=== PATIENT | male | born 1990 | race Caucasian/White ===

== ENCOUNTER 2017-10-22 09:23 | Day surgery (SDC) | payer OTHER ==
[2017-10-22 09:27] VITALS: BMI 25.8
--- NOTE | 2017-10-22 09:35 | PDOC ---
History of Present Illness - General History Source: Patient Exam Limitations: No Limitations - History of Present Illness Initial Comments: 10/22/17 10:43 The patient is a 27 year old male, with a significant past medical history of kidney stones, who presents to the emergency department with acute onset of right lower quadrant pain since last night. Patient reports his pain radiates into the umbilicus. He denies any associated nausea, vomiting, diarrhea, or constipation. He denies eating anything out of the ordinary or any injuries. He denies any flank pain, dysuria, hematuria, frequency, or urgency. He denies any recent fever, chills, headache, or dizziness. He denies any recent travel or sick contacts. Allergies: Penicillins Past Surgical History: None reported. Social History: Non smoker. No ETOH or recreational drug use. PCP: Dr. Ceja <Americo Holley - Last Filed: 10/22/17 15:59> - General History Source: Patient Exam Limitations: No Limitations <Jeanie Graham - Last Filed: 10/22/17 16:27> - General Chief Complaint: Pain Stated Complaint: ABD PAIN Time Seen by Provider: 10/22/17 09:35 Past History <Americo Holley - Last Filed: 10/22/17 15:59> - Past Medical History COPD: No - Immunization History Immunization Up to Date: Yes - Suicide/Smoking/Psychosocial Hx Smoking Status: No Smoking History: Never smoked Have you smoked in the past 12 months: No Number of Cigarettes Smoked Daily: 0 Hx Alcohol Use: Yes (occassionally.) Drug/Substance Use Hx: No Substance Use Type: Alcohol <Jeanei Graham - Last Filed: 10/22/17 16:27> - Past Medical History Allergies/Adverse Reactions: Allergies Allergy/AdvReac Type Severity Reaction Status Date / Time Penicillins Allergy Mild itchy Verified 10/22/17 09:25 Review of Systems - Review of Systems Able to Perform ROS?: Yes Comments:: 10/22/17 10:43 GENERAL/CONSTITUTIONAL: No: fever, chills, weakness, loss of appetite. HEAD, EYES, EARS, NOSE AND THROAT: No: change in vision, ear pain, discharge, sore throat, throat swelling. CARDIOVASCULAR: No: chest pain, lightheadedness, palpitations, syncope RESPIRATORY: No: cough, shortness of breath, wheezing, hemoptysis, stridor. GASTROINTESTINAL: Yes right lower quadrant pain radiating to the umbilicus. No: nausea, vomiting, abdominal cramping, diarrhea, rectal bleeding, constipation. GENITOURINARY: No: dysuria, hematuria, frequency, urgency, flank pain. MUSCULOSKELETAL: No: back pain, neck pain, joint pain, muscle swelling or pain SKIN: No: lesions, pallor, rash or easy bruising. NEUROLOGIC: No: headache, vertigo, paresthesias, weakness ENDOCRINE: No: unexplained weight gain or loss HEMATOLOGIC/LYMPHATIC: No: anemia, easy bleeding, swelling nodes <Holley,Giomilsy - Last Filed: 10/22/17 15:59> *Physical Exam - Vital Signs Last Vital Signs Temp Pulse Resp BP Pulse Ox 98.7 F 82 18 153/74 99 10/22/17 09:25 10/22/17 09:24 10/22/17 09:24 10/22/17 09:24 10/22/17 09:24 - Physical Exam Comments: 10/22/17 10:43 GENERAL: The patient is in no acute distress. HEAD: Normal with no signs of trauma. EYES: PERRLA, EOMI, sclera anicteric, conjunctiva clear. ENT: Ears normal, nares patent, oropharynx clear without exudates. Moist mucous membranes. NECK: Normal range of motion, supple without lymphadenopathy, JVD, or masses. LUNGS: Breath sounds equal, clear to auscultation bilaterally. No wheezes, and no crackles. HEART:Regular rate and rhythm, normal S1 and S2 without murmur, rub or gallop. ABDOMEN: Mild right lower quadrant tenderness. Soft, normoactive bowel sounds. No guarding, no rebound. EXTREMITIES: Normal range of motion, no edema. No clubbing or cyanosis. No erythema, or tenderness. NEUROLOGICAL: Cranial nerves II through XII grossly intact. Normal speech. No focal neurological deficits. MUSCULOSKELETAL: Back non-tender to palpation, no CVA tenderness SKIN: Warm, Dry, normal turgor, no rashes or lesions noted. <Holley,Giomilsy - Last Filed: 10/22/17 15:59> - Vital Signs Last Vital Signs Temp Pulse Resp BP Pulse Ox 99.0 F 82 18 153/74 99 10/22/17 09:24 10/22/17 09:24 10/22/17 09:24 10/22/17 09:24 10/22/17 09:24 <Jeanie Graham - Last Filed: 10/22/17 16:27> ED Treatment Course - LABORATORY CBC & Chemistry Diagram: 10/22/17 10:20 10/22/17 10:20 - RADIOLOGY Radiograph Interpretation: 10/22/17 15:59 EXAM: CT Abdomen and Pelvis INTERPRETED BY: Dr. Brewer REVIEWED BY: Dr. Graham IMPRESSION: The heart is now enlarged. The visualized lung bases are clear. The liver is normal in size and contour. The gallbladder is not pathologically distended. There is no intrahepatic or extrahepatic biliary ductal dilatation. The pancreas is unremarkable. Normal size spleen, with no focal lesions. There is no mass or nodule in the adrenal glands. The kidneys are normal in size with symmetric enhancement. There is no hydroureteronephrosis. There is a 3 mm nonobstructing calculus in a lower pole calyx of the right kidney. Normal caliber abdominal aorta. There is no bowel obstruction. The appendix is fluid- filled and dilated, measuring up to 11 mm at the tip, with mucosal hyperenhancement, wall thickening and periappendiceal fat stranding. There is no extraluminal gas. There is ascites or drainable collection within the abdomen or pelvis. The urinary bladder is underdistended, which limits evaluation. The prostate gland is not enlarged. No pathologically enlarged lymph nodes by CT size criteria within the abdomen or pelvis. Few subcentimeter right lower quadrant is enteric lymph nodes may be reactive. No acute fracture in the visualized osseous structures. SUMMARY:1. Acute appendicitis as described above with no CT evidence of perforation. 2. A 3 mm nonobstructing right renal calculus. <Americo Holley - Last Filed: 10/22/17 15:59> - LABORATORY CBC & Chemistry Diagram: 10/22/17 10:20 10/22/17 10:20 <Jeanie Graham - Last Filed: 10/22/17 16:27> Medical Decision Making - Medical Decision Making 10/22/17 16:18 Laboratory Tests 10/22/17 10/22/17 10/22/17 10:20 10:20 10:20 WBC 11.5 H Hgb 16.0 Hct 47.5 Plt Count 398 INR Sodium 140 Potassium 4.3 Chloride 102 Carbon Dioxide 30 D BUN 8 D Creatinine 0.9 D Random Glucose 88 Total Bilirubin 1.2 H D Urine Ketones Negative Urine Blood Negative Ur Leukocyte Esterase Negative 10/22/17 10:20 WBC Hgb Hct Plt Count INR 1.01 Sodium Potassium Chloride Carbon Dioxide BUN Creatinine Random Glucose Total Bilirubin Urine Ketones Urine Blood Ur Leukocyte Esterase CT of the abdomen and pelvis consistent with acute appendicitis Dr. Olmedo in the emergency department seeing another patient. Case discussed with Dr. Olmedo She will see this patient in the ER 10/22/17 16:21 Pt ordered for Levaquin and Flagyl 10/22/17 16:24 Pt ordered for Cefoxitin 1GM Pt given NS 2 L Clinical Impression: Acute Appendicitis, initial presentation <Jeanie Graham - Last Filed: 10/22/17 16:27> *DC/Admit/Observation/Transfer - Attestations Scribe Attestion: 10/22/17 10:44 Documentation prepared by Americo Holley, acting as medical office professional instructor for Jeanie Graham MD. <Americo Holley - Last Filed: 10/22/17 15:59> - Discharge Dispostion Admit: Yes <Jeanie Graham - Last Filed: 10/22/17 16:27> Diagnosis at time of Disposition: Appendicitis Qualifiers: Appendicitis type: acute appendicitis Acute appendicitis type: other Qualified Code(s): K35.89 - Other acute appendicitis - Discharge Dispostion Condition at time of disposition: Stable - Referrals Referrals: Marky Ceja [Primary Care Provider] - - Patient Instructions - Post Discharge Activity
[2017-10-22] MEDS ORDERED: HYDROmorphone HCL CARPU-JECT 1 MG/1 ML DISP.SYRIN IVPUSH ONE (10:15)
[2017-10-22] MEDS ORDERED: HYDROmorphone HCL CARPU-JECT 2 MG/1 ML DISP.SYRIN ONE (10:45)
[2017-10-22 10:53] LABS: BASO % 0.8 % (0-2.0); EOS % 1.4 % (0-4.5); HEMATOCRIT 47.5 % (35.4-49); LYMPH % 15.6 % (8-40); MCH 30.1 pg (25.7-33.7); MCHC 33.6 g/dl (32.0-35.9); MEAN CELL VOLUME 89.5 fl (80-96); MONO % 6.4 % (3.8-10.2); NEUT % 75.8 % (42.8-82.8); PLATELET COUNT 398 K/MM3 (134-434); RDW 12.8 % (11.9-15.9); WHITE BLOOD COUNT 11.5 K/mm3 (4.0-10.0)
[2017-10-22 10:55] LABS: URINE APPEARANCE CLEAR; URINE BILIRUBIN NEGATIVE (NEGATIVE); URINE BLOOD NEGATIVE (NEGATIVE); URINE COLOR LTYELLOW; URINE GLUCOSE (UA) NEGATIVE (NEGATIVE); URINE KETONE NEGATIVE (NEGATIVE); URINE LEUK ESTERASE NEGATIVE (NEGATIVE); URINE NITRITE NEGATIVE (NEGATIVE); URINE PROTEIN NEGATIVE (NEGATIVE)
[2017-10-22 11:33] LABS: ALBUMIN 4.1 g/dl (3.4-5.0); ANION GAP 8 (8-16); BLOOD UREA NITROGEN 8 mg/dL (7-18); CALCIUM 9.4 mg/dL (8.5-10.1); CHLORIDE 102 mmol/L (98-107); CO2 30 mmol/L (21-32); CREATININE 0.9 mg/dL (0.7-1.3); GLUCOSE,RANDOM 88 mg/dL (74-106); POTASSIUM 4.3 mmol/L (3.5-5.1); SODIUM 140 mmol/L (136-145)
[2017-10-22] MEDS ORDERED: SODIUM CHLORIDE 1,000 ML IV STA ×2 (11:34→15:07)
[2017-10-22 11:53] LABS: ALK PHOS 92 U/L (45-117); BILIRUBIN,TOTAL 1.2 mg/dL (0.2-1.0); SGOT/AST 22 U/L (15-37); SGPT/ALT 36 U/L (12-78); TOT PROT 8.5 g/dl (6.4-8.2)
[2017-10-22 15:26] LABS: INR 1.01 (0.82-1.09); PROTHROMBIN TIME (PATIENT) 11.4 SEC (9.98-11.88)
[2017-10-22] MEDS ORDERED: cefOXitin SODIUM 2 GM VIAL (RESTRICTED TO ID) IVPB ONE (16:03)
[2017-10-22] MEDS ORDERED: CEFOXITIN SODIUM 2 GM in DEXTROSE 5%-WATER - 100 ML IVPB ONE (16:15)
[2017-10-22] MEDS ORDERED: CEFOXITIN SODIUM 1 GM in DEXTROSE 5%-WATER - 100 ML IVPB ONE (16:25)
--- NOTE | 2017-10-22 16:32 | PDOC ---
ED Treatment Course - LABORATORY CBC & Chemistry Diagram: 10/22/17 10:20 10/22/17 10:20 - ADDITIONAL ORDERS Additional order review: Laboratory Results 10/22/17 10/22/17 10/22/17 10:20 10:20 10:20 PT with INR 11.40 INR 1.01 Sodium 140 Potassium 4.3 Chloride 102 Carbon Dioxide 30 D Anion Gap 8 BUN 8 D Creatinine 0.9 D Creat Clearance w eGFR > 60 Random Glucose 88 Calcium 9.4 Total Bilirubin 1.2 H D AST 22 ALT 36 Alkaline Phosphatase 92 D Total Protein 8.5 H Albumin 4.1 Urine Color Ltyellow Urine Appearance Clear Urine pH 5.0 Ur Specific [place] 1.016 Urine Protein Negative Urine Glucose (UA) Negative Urine Ketones Negative Urine Blood Negative Urine Nitrite Negative Urine Bilirubin Negative Urine Urobilinogen 2.0 Ur Leukocyte Esterase Negative 10/22/17 10:20 RBC 5.30 MCV 89.5 MCHC 33.6 RDW 12.8 MPV 7.0 L Neutrophils % 75.8 Lymphocytes % 15.6 Monocytes % 6.4 Eosinophils % 1.4 D Basophils % 0.8 - RADIOLOGY Radiology Studies Ordered: Category Date Time Status ABDOMEN & PELVIS CT WITH CONTR [CT] Stat CT Scan 10/22/17 10:15 Completed - Medications Given in the ED: ED Medications Discontinued Medications Generic Name Dose Route Start Last Admin Trade Name Freq PRN Reason Stop Dose Admin Hydromorphone HCl 0.5 mg 10/22/17 10:15 10/22/17 10:53 Dilaudid Injection - IVPUSH 10/22/17 10:16 0.5 mg ONCE ONE Administration Metronidazole 500 mg in 100 mls @ 100 mls/hr 10/22/17 15:09 10/22/17 15:30 Flagyl 500mg Premixed Ivpb - IVPB 10/22/17 16:08 100 mls/hr ONCE ONE Administration Medical Decision Making - Medical Decision Making 10/22/17 16:[address] this patient on a satellite admission *DC/Admit/Observation/Transfer Diagnosis at time of Disposition: Appendicitis Qualifiers: Appendicitis type: acute appendicitis Acute appendicitis type: other Qualified Code(s): K35.89 - Other acute appendicitis - Discharge Dispostion Condition at time of disposition: Stable Admit: Yes Decision to Admit order Date/Time: Decision to Admit Order Category Date Time Status Decision to Admit to Hospital Routine Admission 10/22/17 16:27 Active - Referrals Referrals: Marky Ceja [Primary Care Provider] - - Patient Instructions - Post Discharge Activity
[2017-10-22] MEDS ORDERED: PROPOFOL 20 ML ONE ×2 (17:27→19:08)
[2017-10-22] MEDS ORDERED: MIDAZOLAM HCL 2 MG/2 ML SINGLE DOSE VIAL ONE (17:28)
--- NOTE | 2017-10-22 17:28 | HP ---
Admitting History and Physical - Primary Care Physician PCP: Marcial - Admission Chief Complaint: RLQ/periumbilical pain History of Present Illness: 27yo healthy M with h/o R sided kidney stones last year was in usual state of health last night, had dinner, woke up around 4 am and had soup and a malt shake , and went back to bed for about 2 hours. When he woke again, he had mild pain in RLQ/periumbilical area, which persisted over the next few hours and did not respond to an omeprazole his mother gave him. No urinary complaints and no hematuria. He had no N/V, no diarrhea but a normal soft BM this morning. One episode of subjective chills, but no fever. His mother had her appendix out in the past, so he decided to come to ER to be safe. In the ER, labs showed wbc 11.5, afebrile, and CT showed acute appendicitis with no rupture or abscess. He has been given fluids and antibiotics. 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 PER PT - RECENTLY HAD TEST AT PCP and is NOT ALLERGIC to penicillin anymore Family Disease History - Family Disease History Family Disease History: Other: Mother (had appendix out) Review of Systems - Review of Systems Constitutional: reports: Chills. denies: Fever, Loss of Appetite Eyes: denies: Blurred Vision, Recent Change in Vision HENT: denies: Difficult Swallowing, Nasal Congestion, Throat Pain Neck: denies: Swollen Glands, Tenderness Cardiovascular: denies: Chest Pain, Palpitations Respiratory: denies: Cough, SOB Gastrointestinal: reports: Abdominal Pain (with hpi). denies: Constipation, Diarrhea, Nausea, Vomiting Genitourinary: denies: Burning, Dysuria, Flank Pain, Hematuria Musculoskeletal: denies: Back Pain, Joint Pain, Muscle Pain Integumentary: denies: Change in Color, Rash Neurological: denies: Dizziness, Headache Psychiatric: denies: Anxiety, Depression Physical Examination Vital Signs: Vital Signs Temperature 98.7 F 10/22/17 09:25 Pulse Rate 82 10/22/17 09:24 Respiratory Rate 18 10/22/17 09:24 Blood Pressure 153/74 10/22/17 09:24 O2 Sat by Pulse Oximetry (%) 99 10/22/17 09:24 Constitutional: Yes: Well Nourished, No Distress, Calm Eyes: Yes: Conjunctiva Clear, EOM Intact HENT: Yes: Atraumatic, Normocephalic Neck: Yes: Supple, Trachea Midline Cardiovascular: Yes: Tachycardia. No: Pulse Irregular Respiratory: Yes: Regular, CTA Bilaterally Gastrointestinal: Yes: Normal Bowel Sounds, Soft, Hernia (small reducible umbilical), Tenderness (RLQ at [place]Burney's, no R/G). No: Distention ...Rectal Exam: Yes: Deferred Renal/: No: CVA Tenderness - Left, CVA Tenderness - Right Musculoskeletal: No: Joint Stiffness, Joint Swelling Extremities: No: Cool, Cyanosis Edema: No Peripheral Pulses WNL: Yes Integumentary: Yes: Body Piercing (l nares), Tattoos. No: Jaundice, Rash Neurological: Yes: Alert, Oriented. No: Unsteady Gait Psychiatric: Yes: Alert, Oriented Labs: CBC, BMP 10/22/17 10:20 10/22/17 10:20 CMP Sodium 140 mmol/L (136-145) 10/22/17 10:20 Potassium 4.3 mmol/L (3.5-5.1) 10/22/17 10:20 Chloride 102 mmol/L (98-107) 10/22/17 10:20 Carbon Dioxide 30 mmol/L (21-32) D 10/22/17 10:20 Anion Gap 8 (8-16) 10/22/17 10:20 BUN 8 mg/dL (7-18) D 10/22/17 10:20 Creatinine 0.9 mg/dL (0.7-1.3) D 10/22/17 10:20 Creat Clearance w eGFR > 60 (>60) 10/22/17 10:20 Random Glucose 88 mg/dL (74-106) 10/22/17 10:20 Calcium 9.4 mg/dL (8.5-10.1) 10/22/17 10:20 Total Bilirubin 1.2 mg/dL (0.2-1.0) H D 10/22/17 10:20 AST 22 U/L (15-37) 10/22/17 10:20 ALT 36 U/L (12-78) 10/22/17 10:20 Alkaline Phosphatase 92 U/L (45-117) D 10/22/17 10:20 Total Protein 8.5 g/dl (6.4-8.2) H 10/22/17 10:20 Albumin 4.1 g/dl (3.4-5.0) 10/22/17 10:20 INR, PTT INR 1.01 (0.82-1.09) 10/22/17 10:20 Urine Test Results Urine Color Ltyellow 10/22/17 10:20 Urine Appearance Clear 10/22/17 10:20 Urine pH 5.0 (5.0-8.0) 10/22/17 10:20 Ur Specific [place] 1.016 (1.001-1.035) 10/22/17 10:20 Urine Protein Negative (NEGATIVE) 10/22/17 10:20 Urine Glucose (UA) Negative (NEGATIVE) 10/22/17 10:20 Urine Ketones Negative (NEGATIVE) 10/22/17 10:20 Urine Blood Negative (NEGATIVE) 10/22/17 10:20 Urine Nitrite Negative (NEGATIVE) 10/22/17 10:20 Urine Bilirubin Negative (NEGATIVE) 10/22/17 10:20 Ur Leukocyte Esterase Negative (NEGATIVE) 10/22/17 10:20 Imaging - Results Cat Scan: Report Reviewed (acute appendicitis, no abscess or perforation), Image Reviewed Problem List - Problems (1) Appendicitis Assessment/Plan: admit 23H/satellite NPO/IVF until postop periop antibiotics DVT prophylaxis pain meds prn Discussed with patient risks, benefits and alternatives of laparoscopic possible open appendectomy with possible umbilical hernia repair, including but not limited to bleeding, infection, injury to adjacent structures, intestinal leak or injury, intraabdominal abscess, hernia, need for further procedures; alternatives include antibiotics, delayed or no surgery - risks of this include failure of nonoperative therapy, perforation, sepsis, recurrence. Patient desires to proceed with operation - will take to OR now for above. Informed consent signed for same. Code(s): K37 - UNSPECIFIED APPENDICITIS Qualifiers: Appendicitis type: acute appendicitis Acute appendicitis type: other Qualified Code(s): K35.89 - Other acute appendicitis (2) Umbilical hernia without obstruction and without gangrene Code(s): K42.9 - UMBILICAL HERNIA WITHOUT OBSTRUCTION OR GANGRENE (3) RLQ abdominal pain Code(s): R10.31 - RIGHT LOWER QUADRANT PAIN (4) H/O renal calculi Code(s): Z87.442 - PERSONAL HISTORY OF URINARY CALCULI
[2017-10-22] MEDS ORDERED: KETOROLAC TROMETHAMINE 30 MG/1 ML VIAL ONE (17:29)
[2017-10-22] MEDS ORDERED: DEXAMETHASONE SOD PHOSPHATE 4 MG/1 ML VIAL ONE (17:29)
[2017-10-22] MEDS ORDERED: BENZOIN/ALOE VERA/STORAX/TOLU 58 ML BOTTLE ONE (17:31)
[2017-10-22] MEDS ORDERED: BUPIVACAINE HCL/PF 0.5% (5MG/ML) 10 ML VIAL ONE (17:31)
[2017-10-22] MEDS ORDERED: ONDANSETRON 4 MG/2 ML VIAL IVPUSH PRN ×2 (17:37→19:59)
[2017-10-22] MEDS ORDERED: oxyCODONE HCL 5 MG TABLET PO PRN ×3 (17:37→19:59)
[2017-10-22] MEDS ORDERED: ELECTROLYTE-148 SOLN 1,000 ML IV SCH (17:45)
[2017-10-22] MEDS ORDERED: NEOSTIGMINE METHYLSULFATE 0.5 MG/ML - 10 ML MDV ONE (17:57)
[2017-10-22] MEDS ORDERED: GLYCOPYRROLATE 0.2 MG/1 ML VIAL ONE (17:57)
[2017-10-22] MEDS ORDERED: METOPROLOL TARTRATE 5 MG/5 ML VIAL ONE (18:11)
[2017-10-22] MEDS ORDERED: ROCURONIUM BROMIDE 50 MG/5 ML VIAL ONE (18:22)
[2017-10-22] MEDS ORDERED: ONDANSETRON 4 MG/2 ML VIAL ONE (19:38)
[2017-10-22] MEDS ORDERED: IBUPROFEN 400 MG TABLET (FP) PO PRN (19:41)
[2017-10-22] MEDS ORDERED: ACETAMINOPHEN 325 MG TABLET (FP) PO PRN ×2 (19:41→19:59)
[2017-10-22] MEDS ORDERED: morphine CARPU-JECT 2 MG/1 ML DISP.SYRIN IM PRN (19:41)
--- NOTE | 2017-10-22 19:41 | OP ---
Operative Note - Note: Operative Date: 10/22/17 Pre-Operative Diagnosis: acute appendicitis, umbilical hernia Operation: laparoscopic appendectomy, open umbilical hernia repair Findings: just under 1cm umbilical defect, used for [place] port, closed primarily; enlarged appendix with inflamed distal half, scant yellow fluid in pelvis, suctioned Post-Operative Diagnosis: Same as Pre-op Surgeon: Ashkan Olmedo Anesthesiologist/CONTRACT LOADER: Nnamdi Fontana Anesthesia: General Specimens Removed: appendix to pathology Estimated Blood Loss (mls): 5 Drains & Tubes with Location: [place] removed at end of case Drains, Volume Out (mls): 200 (UOP) Fluid Volume Replaced (mls): 1,300 (crystalloid) Operative Report Dictated: Yes
[2017-10-22] MEDS ORDERED: D5-1/2NS+20 MEQ KCL - 1,000 ML IV SCH (19:45)
[2017-10-22] MEDS ORDERED: D5-1/2NS+20 MEQ KCL - 20 MEQ/1,000 ML INFUS.BAG IV SCH (19:59)
[2017-10-22] MEDS ORDERED: morphine CARPU-JECT 10 MG/1 ML DISP.SYRIN IM PRN (19:59)
[2017-10-22] MEDS ORDERED: PROMETHAZINE HCL 25 MG/1 ML VIAL ONE (20:46)
[2017-10-22] MEDS: IBUPROFEN 400 MG TABLET (FP) PO PRN (22:07)
[2017-10-22] MEDS ORDERED: PROMETHAZINE HCL 25 MG/1 ML VIAL IVPUSH ONE (23:47)
[2017-10-23] MEDS ORDERED: CEFOXITIN SODIUM 2 GM in DEXTROSE 5%-WATER - 100 ML IVPB ONE (00:01)
[2017-10-23] MEDS ORDERED: cefOXitin SODIUM 2 GM VIAL (RESTRICTED TO ID) IVPB ONE ×2 (00:01)
[2017-10-23] MEDS: IBUPROFEN 400 MG TABLET (FP) PO PRN (09:14)
--- NOTE | 2017-10-23 09:54 | DS ---
Physical Examination Vital Signs: Vital Signs Temperature 98.3 F 10/23/17 06:38 Pulse Rate 79 10/23/17 06:38 Respiratory Rate 20 10/23/17 06:38 Blood Pressure 123/62 10/23/17 06:38 O2 Sat by Pulse Oximetry (%) 100 10/22/17 21:53 Findings/Remarks: Pt seen and examined in bed. Feeling better. Has eaten breakfast plus a sandwich. Ambulating, voiding, pain mostly umbilical, controlled with Tylenol and ibuprofen. No nausea. No fevers. Constitutional: Yes: Well Nourished, No Distress, Calm Eyes: Yes: Conjunctiva Clear, EOM Intact HENT: Yes: Atraumatic, Normocephalic Cardiovascular: Yes: Regular Rate and Rhythm. No: Murmur Respiratory: Yes: Regular, CTA Bilaterally Gastrointestinal: Yes: Normal Bowel Sounds, Soft, Distention (mild), Tenderness (mild RLQ, incisional - mainly umbilical, no R/G) Extremities: No: Cool, Cyanosis Edema: No Integumentary: Yes: Incision (x3 dressed), Tattoos. No: Rash Wound/Incision: Yes: Steri Strips (under dressings), Dressing Dry and Intact (x3 ). No: Dressing Removed Neurological: Yes: Alert, Oriented Labs: no new labs Discharge Summary Reason For Visit: APPENDICITIS Current Active Problems Appendicitis (Acute) H/O renal calculi (Acute) RLQ abdominal pain (Acute) Umbilical hernia without obstruction and without gangrene (Acute) Procedures: Principal: laparoscopic appendectomy and open umbilical hernia repair Hospital Course: 27yo M with h/o R renal calculi presented with several hours of RLQ and periumbilical pain associated with chills but no other symptoms. He was found in ER to have wbc 11.[address] showed acute appendicitis. Physical exam also revealed a small reducible umbilical hernia. He was hydrated, given IV antibiotics, and taken to OR for uneventful laparoscopic appendectomy with primary umbilical hernia repair. Postoperative course has been unremarkable - he is ambulating, voiding, tolerating regular diet, and pain is controlled with nonnarcotic oral medication. He is discharged home to follow up in 2 weeks. Time spent on discharge: 35 minutes. Condition: Good - Instructions Diet, Activity, Other Instructions: Postoperative instructions: You had a laparoscopic appendectomy with umbilical hernia repair (no mesh) on 10/22/[address] Ashkan Olmedo of [facility]. Activity: Resume your usual activities gradually, but no heavy exertion or lifting more than 15-20 pounds for 1 month. Remove dressings 48 hours after surgery; sticky tapes underneath will fall off by themselves. You may shower daily starting then, just pat the incision areas dry. No bath or swimming until skin incisions are healed. Eat lightly at first, but advance to your usual diet as tolerated. Pain: For pain, you may use and alternate Tylenol (acetaminophen) and/or ibuprofen every 6 hours each as needed; this means that you can take one OR the other at 3-hour intervals. If you are prescribed a Tylenol/narcotic combination for severe pain, use it instead of plain Tylenol as needed and switch back when your pain starts decreasing. Do not take more than 4000mg of acetaminophen in a day. Take medications as prescribed or indicated on the labeling. Follow-up: Call Dr. Olmedo's office at [phone] to make your postop appointment (Friday ~2 weeks after surgery). Clinic is held in the [facility] on the first floor of [facility]. Call the office if you have: * increasing pain not responsive to pain medication * fever of 101F or higher * vomiting * unusual or increasing bleeding or drainage from wounds * increasing redness or swelling at wound sites * inability to urinate Also, see your primary medical doctor within 1-2 weeks. Referrals: Marky Ceja [Primary Care Provider] - Disposition: HOME - Home Medications Comprehensive Discharge Medication List: Ambulatory Orders Acetaminophen [Tylenol .Regular Strength -] 650 mg PO Q6H PRN tablet 10/23/17 Ibuprofen [Motrin -] 600 mg PO Q6H PRN tablet 10/23/17
[2017-10-23 10:46] VITALS: BP 132/64; PULSE 74; TEMP 98.1
--- NOTE | 2017-10-23 12:04 | OP ---
DATE OF OPERATION: 10/22/2017 PREOPERATIVE DIAGNOSES: Acute appendicitis and umbilical hernia. POSTOPERATIVE DIAGNOSES: Acute appendicitis and umbilical hernia. PROCEDURE PERFORMED: Laparoscopic appendectomy and open umbilical hernia repair. SURGEON: Ashkan Olmedo MD ANESTHESIA: General endotracheal. ESTIMATED BLOOD LOSS: 5 mL. FLUIDS: 1300 mL crystalloid. URINE OUTPUT: 200 mL. SPECIMEN: Appendix to pathology. FINDINGS: The umbilical defect was just under 1 cm. It was used for the Mayo port and closed primarily. The appendix was enlarged with an inflamed distal half. There was scant yellow fluid in the pelvis, which was suctioned. DISPOSITION: Stable and extubated to PACU. INDICATIONS FOR PROCEDURE: The patient is a 27-year-old generally healthy male who was in his usual state of health last night had a normal dinner and a snack of soup and a malt at 4 a.m., who then went back to bed for 2 hours, after which he awoke and had some pain in his right lower quadrant and periumbilical areas, which persisted over the next several hours and did not respond to an antacid. He has a history of kidney stones and had no urinary complaints, no hematuria. This felt different. He did not have any nausea or vomiting but did have some subjective chills. He had a normal bowel movement this morning as well but came to the emergency room, where labs showed a white count of 11.[address] scan showed acute appendicitis with no evidence of rupture or abscess. He was given fluids and antibiotics in the ER. Risks, benefits, and alternatives of laparoscopic, possible open, appendectomy with possible umbilical hernia repair, as a small, reducible umbilical hernia was also found on physical exam, were discussed with the patient. This included, but was not limited to, bleeding, infection, injury to adjacent structures, intestinal leak or injury, intra-abdominal abscess, hernia recurrence or development, need for further procedures, and alternatives inclusive of antibiotics and delayed or no surgery with attendant risks of failure of nonoperative therapy, perforation, sepsis, and recurrence were also discussed. The patient desires to proceed with an operation. Informed consent was signed for the same, and he is now brought to the operating room emergently for this procedure. OPERATIVE TECHNIQUE: The patient was brought to the operating room and laid supine on the operating table. Sequential compression devices were applied to bilateral lower extremities. After induction and intubation by Anesthesia, the patient's abdomen was clipped of hair. A Osborne catheter was placed in the patient's bladder, which was removed at the end of the case, and his abdomen was prepped and draped in sterile fashion. A small supraumbilical midline incision was made with a scalpel and carried just onto the umbilicus. This was deepened into subcutaneous tissues with electrocautery, until the hernia sac and abdominal wall fascia were identified. The tip of a curved clamp was used to get around the entire hernia sac, which was then amputated from underneath the skin of the umbilicus with electrocautery. Kochers were used to grasp the edge of the fascia on either side of the umbilical hernia defect and a fingertip inserted and used to bluntly enter the peritoneum, as preperitoneal fat was the only content in the hernia. A [id number] stay suture of 0 Vicryl was placed in the fascia for later closure, which would then also used to obliterate the hernia. The Maoy trocar was then introduced directly into the abdominal cavity through the hernia opening and secured in place with the balloon. The abdomen was insufflated with carbon dioxide, and the laparoscope was inserted to inspect the abdominal cavity. What appeared to be the appendix was visualized in the right lower quadrant extending down toward the pelvis. There was no significant fluid initially seen in the right lower quadrant or the pelvic area. Two additional 5-mm ports were then placed, first in the left lower quadrant under direct vision and then in the suprapubic area after the patient had been placed in Trendelenburg position with the right side planed upward. The camera was switched to the left lower quadrant port, and 2 graspers were introduced to the other 2 ports and used to gently manipulate the small bowel away from the right lower quadrant, revealing that the structure initially visualized was indeed the appendix. The distal half was noted to be quite inflamed and the midportion was somewhat stuck initially to the right lower quadrant sidewall with some thin, filmy adhesions. These were bluntly with the 2 graspers. The appendix was grasped in one hand, and a [place] dissector then used with the other to identify the base of the appendix where it joined the cecum and create a window immediately underneath this portion. The base appeared to be normal. Once a window had been created, a 45 blue load of the Endo WINNIE stapler was inserted and used to transect the appendix at the cecal junction. The staple line was hemostatic. The appendix was then also held up again and the mesoappendix easily visualized. A 60 white load of the Endo WINNIE stapler was then reinserted and used to transect the mesoappendix just below the appendix itself completing the appendectomy. This staple line also was noted to have no bleeding. The appendix was set aside in the right lower quadrant momentarily and attention turned into the pelvis, where a grasper was used to gently move the sigmoid colon out of the way. A scant amount of yellow fluid was visualized deep in the pelvis and the suction scroll machine operator used to suction only this fluid from deep in the pelvis. The patient was then returned to neutral position. The small bowel and omentum were returned to their normal anatomic position in the right lower quadrant. The appendix was placed in an EndoCatch bag and retrieved out the umbilical port site under direct vision. The stay suture at the umbilical port site was then pulled tight and visualized from the inside as completely closing off the umbilical hernia defect. The suprapubic port was then removed under direct vision, and the left lower quadrant port and camera were also removed. The abdomen was then exsufflated completely of carbon dioxide, and the stay suture at the umbilical port site tied to close the hernia and the defect there. The umbilical skin was then retacked to the fascial layer with a 3-0 Vicryl stitch. Hemostasis was achieved in the port sites where necessary with electrocautery, and 4-0 Vicryl subcuticular sutures were used to close the skin, including a running at the umbilical location. Benzoin and Steri-Strips were applied to all incisions, which were then covered with dressings of gauze and Tegaderm. Counts were correct at the end of the procedure. The Osborne catheter was then removed from the patient's bladder at the end of the procedure. The patient was then awakened and extubated by Anesthesia, moved back to a stretcher, and taken to the recovery room in stable condition having tolerated the procedure well. Ashkan Olmedo M.D. [id number] MTDD
--- NOTE | 2017-10-29 11:45 | PATH ---
Surgical Pathology Report Patient Name: WESTLEY GONZALEZ [facility]. Rec. #: [id number] /Age/Gender: 1990 (Age: 27) / M Account: [id number] Location: [facility] SURGICAL Taken: 10/22/2017 Received: 10/23/2017 Reported: 10/29/2017 Physicians: Ashkan Olmedo M.D. Specimen(s) Received APPENDIX Clinical History Appendicitis, umbilical hernia Final Diagnosis APPENDIX, LAPAROSCOPIC APPENDECTOMY: ACUTE AND CHRONIC APPENDICITIS AND PERIAPPENDICITIS. Electronically Signed Gracia Berkowitz M.D. Gross Description Received in formalin, labeled "appendix," is a 10 cm. in length vermiform appendix with a stapled margin of resection and abundant attached fat. The serosa is baker-sung and smooth with attached exudate. Sectioning reveals a dilated lumen containing pus. The wall of the appendix averages 0.2 cm. in thickness. [employer] sections are submitted in one cassette. 10/23/2017 saudi10/23/2017
== END 2017-10-23 12:27 | disposition home or self-care (01) ==
LOC: JER 09:23 → SUPCPDRO 09:23 → JASU-SURG 17:49 → J8W 21:42 → JASU-SURG 10-23 12:27
PROVIDERS: ATTEND Surgery
PROC: 0DTJ4ZZ Resection of Appendix, Percutaneous Endoscopic Approach (ICD-10-PCS; 2017-10-22)
PROC: 0WQF0ZZ Repair Abdominal Wall, Open Approach (ICD-10-PCS; principal; 2017-10-22 18:00)
DX: K35.89 Other acute appendicitis (principal); K42.9 Umbilical hernia without obstruction or gangrene
CPT/HCPCS: 36415; 74177-TC; 80053; 81003; 85025; 85610; 86850; 86900; 86901; 87086; 88304-TC; 94760; 99283-25; J7030

== ENCOUNTER 2018-01-30 12:25 | Emergency (ER) | payer OTHER ==
[2018-01-30 12:32] VITALS: BP 137/72; PULSE 90; TEMP 98.1; BMI 26.5
--- NOTE | 2018-01-30 14:05 | PDOC ---
History of Present Illness - General Chief Complaint: Sore Throat Stated Complaint: THROAT PAIN Time Seen by Provider: 01/30/18 12:56 - History of Present Illness Initial Comments: 01/30/18 14:00 CHIEF COMPLAINT: sore throat HISTORY OF PRESENT ILLNESS: 27 yo M with no PMH [facility] with sore throat x 2 days. Patient denies fever, chills, sneezing, coughing, runny nose, or other URI symptoms. No recent travel or sick contacts. PAST MEDICAL HISTORY: Denies past medical history FAMILY HISTORY: Denies SOCIAL HISTORY: Denies tobacco, alcohol, illicit drug use. SURGICAL HISTORY: Denies ALLERGIES: No known drug allergies REVIEW OF SYSTEMS General/Constitutional: Denies fever or chills. Denies weakness, weight change. HEENT: Denies change in vision. Denies ear pain or discharge. Denies sore throat. Cardiovascular: Denies chest pain or shortness of breath. Respiratory: Denies cough, wheezing, or hemoptysis. Gastrointestinal: Denies nausea, vomiting, diarrhea or constipation. Denies rectal bleeding. Genitourinary: Denies dysuria, frequency, or change in urination. Musculoskeletal: Denies joint or muscle swelling or pain. Denies neck or back pain. Skin and breasts: Denies rash or easy bruising. Neurologic: Denies headache, vertigo, loss of consciousness, or loss of sensation. Psychiatric: Denies depression or anxiety. Endocrine: Denies increased thirst. Denies abnormal weight change. Hematologic/Lymphatic: Denies anemia, easy bleeding, or history of blood clots. Allergic/Immunologic: Denies hives or skin allergy. Denies latex allergy. PHYSICAL EXAM General Appearance: Well-appearing, appropriately dressed. No apparent distress , no intoxication. HEENT: EOMI, PERRLA, normal ENT inspection, normal voice, TMs normal, pharynx normal. No conjunctival pallor. No photophobia, scleral icterus. Neck: Supple. Trachea midline. No tenderness, rigidity, carotid bruit, stridor , lymphadenopathy, or thyromegaly. Respiratory/Chest: Lungs CTAB. No shortness of breath, chest tenderness, respiratory distress, accessory muscle use. No crackles, rales, rhonchi, stridor , wheezing, dullness Cardiovascular: RRR. S1, S2. No JVD, murmur, bradycardia, tachycardia. Vascular Pulses: Dorsalis-Pedis (R): 2+, Dorsalis-Pedis (L): 2+ Gastrointestinal/Abdominal: Normal bowel sounds. Abdomen soft, non-distended. No tenderness or rebound tenderness. No organomegaly, pulsatile mass, guarding , hernia, hepatomegaly, splenomegaly. Lymphatic: No adenopathy, tenderness. Musculoskeletal/Extremities: Normal inspection. FROM of all extremities, normal capillary refill. Pelvis Stable. No CVA tenderness. No tenderness to extremities, pedal edema, swelling, erythema or deformity. Integumentary: Appropriate color, dry, warm. No cyanosis, erythema, jaundice or rash Neurologic: bean dumper II-XII intact. Fully oriented, alert. Appropriate mood/affect. Motor strength 5/5. No appreciable EOM palsy, facial droop or sensory deficit. 01/30/18 14:06 Past History - Past Medical History Allergies/Adverse Reactions: Allergies Allergy/AdvReac Type Severity Reaction Status Date / Time Penicillins Allergy Mild itchy Verified 01/30/18 12:29 Home Medications: Ambulatory Orders Azithromycin [Zithromax 250mg Tablets -] 250 mg PO UTDICT #6 tab 01/30/18 COPD: No - Surgical History Appendectomy: Yes - Immunization History Immunization Up to Date: Yes - Suicide/Smoking/Psychosocial Hx Smoking Status: No Smoking History: Never smoked Have you smoked in the past 12 months: No Number of Cigarettes Smoked Daily: 0 Information on smoking cessation initiated: No Hx Alcohol Use: Yes (occasionally.) Drug/Substance Use Hx: No Substance Use Type: Alcohol *Physical Exam - Vital Signs Last Vital Signs Temp Pulse Resp BP Pulse Ox 98.1 F 90 20 137/72 99 01/30/18 12:29 01/30/18 12:29 01/30/18 12:29 01/30/18 12:29 01/30/18 12:29 ED Treatment Course - ADDITIONAL ORDERS Additional order review: 01/30/18 13:29 Group A Strep Rapid Antigen - Preliminary Throat *DC/Admit/Observation/Transfer Diagnosis at time of Disposition: Strep pharyngitis - Discharge Dispostion Disposition: HOME Condition at time of disposition: Stable Admit: No - Prescriptions Prescriptions: Azithromycin [Zithromax 250mg Tablets -] 250 mg PO UTDICT #6 tab - Referrals Referrals: Marky Ceja [Primary Care Provider] - - Patient Instructions Printed Discharge Instructions: DI for Strep Throat Additional Instructions: Please take medication as prescribed; complete the ENTIRE course of antibiotics even if your symptoms improve. If you develop change in voice, inability to swallow your saliva, or have difficulty breathing, or you develop any new or worsening symptoms, please return to the ER. - Post Discharge Activity Forms/Work/School Notes: Back to Work
== END 2018-01-30 14:16 | disposition home or self-care (01) ==
LOC: JERFT 12:25
DX: J02.0 Streptococcal pharyngitis (principal); B95.0 Streptococcus, group A, as the cause of diseases classified elsewhere
CPT/HCPCS: 87070; 87077; 87430; 99281-25

== ENCOUNTER 2018-10-31 19:10 | Emergency (ER) | payer OTHER ==
[2018-10-31 19:29] VITALS: BP 125/78; PULSE 56; TEMP 97.6; BMI 27.2
--- NOTE | 2018-10-31 19:56 | PDOC ---
Attending Attestation - HPI HPI: This patient is a 28 year old male with PMHx of appendicitis s/p appendectomy, kidney stones, reported "kidney infection", who presents for 1 day of right flank and suprapubic pain. Patient states that his pain began at 2pm, describes it as pressure-like, waxes and wanes in intensity (was 6/7 earlier, now 4/5), comes and goes. Patient also notes dark-colored urine. Denies any dysuria or discharge. Denies any fever, chills, nausea, vomiting, constipation, diarrhea, chest pain, shortness of breath, headache, dizziness, weakness, change in sensation. In a monogamous relationship and does not use protection. PCP: Marky Ceja - Physicial Exam PE: GENERAL: The patient is in no acute distress. HEAD: Normal with no signs of trauma. EYES: PERRLA, EOMI, sclera anicteric, conjunctiva clear. LUNGS: Breath sounds equal, clear to auscultation bilaterally. No wheezes, and no crackles. HEART:Regular rate and rhythm, normal S1 and S2 without murmur, rub or gallop. ABDOMEN: Soft, nontender, normoactive bowel sounds. No guarding, no rebound. EXTREMITIES: Normal range of motion, no edema. No clubbing or cyanosis. No erythema, or tenderness. NEUROLOGICAL: Cranial nerves II through XII grossly intact. Normal speech. No focal neurological deficits. MUSCULOSKELETAL: Back nontender to palpation, no CVA tenderness SKIN: Warm, Dry, normal turgor, no rashes or lesions noted. exam: No testicular pain or swelling. No palpable hernia noted. <Yun Pillai - Last Filed: 10/31/18 22:16> - Resident Resident Name: Jaya Martin - ED Attending Attestation I have performed the following: I have examined & evaluated the patient, The case was reviewed & discussed with the resident, I agree w/resident's findings & plan, Exceptions are as noted - Medical Decision Making 10/31/18 20:04 28 yo M h/o nephrolithiasis (not requiring intervention), h/o appendicitis s/p appendectomy who presents to the ER with a complaint of right flank pain Symptoms began this afternoon around 2pm Pain described as pressure Pain now resolved (+) hematuria No fevers or chills On examination History and examination seem consistent with passed kidney stone Will do: Labs UA Urine culture Gc/Chlam 10/31/18 22:13 Laboratory Tests 10/31/18 10/31/18 10/31/18 20:54 20:54 20:54 WBC 5.0 Hgb 16.1 Hct 45.3 Plt Count 471 H BUN 10 Creatinine 1.0 AST 19 ALT 37 Urine Protein 2+ H Urine Blood 3+ H Urine Nitrite Negative Urine WBC (Auto) 34 Urine RBC (Auto) 1131 10/31/18 22:38 There is a stone measuring 5 mm in the mid to distal right ureter at the level of the iliac vessels. Associated mild hydronephrosis and ureterectasis The left kidney is unremarkable The unenhanced liver, gallbladder, spleen, pancreas and adrenal glands are grossly normal 10/31/18 23:27 Initial plan to admit Case reviewed with hospitalist NITZA Xiao requested a Urology consult Call placed to Dr Qureshi He recommended discharge on Bactrim/Toradol/flomax Pt instructed to return to the ER for fevers, chills, worsening pain, any other concerns or complaints <Jeanie Graham - Last Filed: 10/31/18 23:28> *DC/Admit/Observation/Transfer <Yun Pillai - Last Filed: 10/31/18 22:16> - Discharge Dispostion Decision to Admit order: No <Jeanie Graham - Last Filed: 10/31/18 23:28> Diagnosis at time of Disposition: Kidney stone on right side UTI (urinary tract infection) Qualifiers: Urinary tract infection type: acute cystitis Hematuria presence: with hematuria Qualified Code(s): N30.01 - Acute cystitis with hematuria - Discharge Dispostion Disposition: HOME Condition at time of disposition: Stable - Prescriptions Prescriptions: Ketorolac Tromethamine [Toradol] 10 mg PO Q6H PRN #16 tablet PRN Reason: Pain Level 6-10 Sulfamethoxazole/Trimethoprim [Bactrim Ds Tablet] 1 each PO BID #10 tablet Tamsulosin HCl [Flomax] 0.4 mg PO HS #7 cap.er.24h - Referrals Referrals: Marky Ceja [Primary Care Provider] - Opal Martinez MD [Staff Physician] - Oneal Mckinnon MD [Staff Physician] - - Patient Instructions Printed Discharge Instructions: Kidney Stones (Alternative Therapy), DI for Kidney Stones, DI for Urinary Tract Infection (UTI) Additional Instructions: Mr Oneil Thank you for coming in to the ER today You have a kidney stone that you may or may not be able to pass Please stay well hydrated - Aim to drink at least 10 glasses of water per day It is very important that you monitor yourself for fevers Please take medications as prescribed 1) Bactrim 1 tab twice per day (an antibiotic) 2) Flomax 1 tab at night before bed (this will help your stone pass) 3) Toradol for pain Please strain your urine Please be sure to follow up with a Urologist (one was given to you) If you develop fevers, are unable to tolerate pain, unable to take pain medications please return to the ER IMMEDIATELY - Post Discharge Activity Forms/Work/School Notes: Back to Work
--- NOTE | 2018-10-31 20:05 | PDOC ---
History of Present Illness - General Chief Complaint: Pain, Acute Stated Complaint: UTI SYX Time Seen by Provider: 10/31/18 19:40 History Source: Patient Exam Limitations: No Limitations - History of Present Illness Initial Comments: Patient is a 28 y/o M w/ PMHx appendicitis s/p appendectomy, kidney stones, reported "kidney infection" (unclear whether lower UTI or pyelonephritis), p/w 1 day R flank and suprapubic pain, Pt is unsure in which direction the pain radiates. Additionally experiences suprapubic discomfort with urination, no bria dysuria, no hematuria or discharge. Pain has been improving spontaneously , was "really bad" earlier in the day now 5/10 in severity. Denies back pain, f/ c, n/v/c/d, CP, SOB, BUSTOS, dizziness, weakness, change in sensation. In a presumed monogamous sexual relationship with no barrier protection, does request STI screening. 10/31/18 20:00 Past History - Travel Traveled outside of the country in the last 30 days: No Close contact w/someone who was outside of country & ill: No - Past Medical History Allergies/Adverse Reactions: Allergies Allergy/AdvReac Type Severity Reaction Status Date / Time Penicillins Allergy Mild itchy Verified 01/30/18 12:29 Home Medications: Ambulatory Orders Azithromycin [Zithromax 250mg Tablets -] 250 mg PO UTDICT #6 tab 01/30/18 Ketorolac Tromethamine [Toradol] 10 mg PO Q6H PRN #16 tablet 10/31/18 Sulfamethoxazole/Trimethoprim [Bactrim Ds Tablet] 1 each PO BID #10 tablet 10/31 Tamsulosin HCl [Flomax] 0.4 mg PO HS #7 cap.er.24h 10/31/18 COPD: No - Surgical History Appendectomy: Yes - Immunization History Immunization Up to Date: Yes - Suicide/Smoking/Psychosocial Hx Smoking Status: No Smoking History: Never smoked Have you smoked in the past 12 months: No Number of Cigarettes Smoked Daily: 0 Information on smoking cessation initiated: No Hx Alcohol Use: Yes (socially) Drug/Substance Use Hx: No Substance Use Type: Alcohol Review of Systems - Review of Systems Comments:: As per HPI. 10/31/18 20:03 *Physical Exam - Vital Signs Last Vital Signs Temp Pulse Resp BP Pulse Ox 97.6 F 56 L 20 125/78 99 10/31/18 19:25 10/31/18 19:25 10/31/18 19:25 10/31/18 19:25 10/31/18 19:25 - Physical Exam Comments: Gen: A&Ox3, NAD HEENT: NC/AT, PERRLA, EOMI, MMM, no exudates Neck: supple, non-tender, no LAD, no JVD CV: RRR no m/r/g Resp: CTA b/l Abd: +bs, soft, NT, ND Ext: 2+ pulses, wwp, no edema MSK: full ROM, no CVA tenderness Neuro: practicing urologist, motor, sensory systems w/o focal deficit Psych: normal mood, normal affect Skin: warm, dry, normal turgor 10/31/18 20:03 Moderate Sedation - Procedure Monitoring Vital Signs: Procedure Monitoring Vital Signs Temperature 97.6 F 10/31/18 19:25 Pulse Rate 56 L 10/31/18 19:25 Respiratory Rate 20 10/31/18 19:25 Blood Pressure 125/78 10/31/18 19:25 O2 Sat by Pulse Oximetry (%) 99 10/31/18 19:25 ED Treatment Course - LABORATORY CBC & Chemistry Diagram: 10/31/18 20:54 10/31/18 20:54 Medical Decision Making - Medical Decision Making Symptoms appear to be self-resolving and physical exam is benign throughout. Will order CBC, CMP, Mg, Phos, UA, GC/Chlamydia screening. 10/31/18 20:[address] for r/o renal stones given Pt's Hx 10/31/18 20:12 CBC, CMP, Mg, Phos wnl. 10/31/18 22:03 UA: 3+ blood, 1130 RBCs, 34 WBCs. 10/31/18 22:11 CT demonstrated 5 mm R ureteral stone w/ associated mild hydronephrosis. 10/31/18 22:32 D/w Dr. Qureshi. Urology recommendation is to dc w/ Bactrim, Flomax, Toradol, encourage oral hydration. Instructed patient on decision and explained need to return immediately if fever develops for emergency stenting. 10/31/18 23:18 *DC/Admit/Observation/Transfer Diagnosis at time of Disposition: Kidney stone on right side UTI (urinary tract infection) Qualifiers: Urinary tract infection type: acute cystitis Hematuria presence: with hematuria Qualified Code(s): N30.01 - Acute cystitis with hematuria - Discharge Dispostion Disposition: HOME Condition at time of disposition: Stable - Referrals Referrals: Marky Ceja [Primary Care Provider] - - Patient Instructions Printed Discharge Instructions: DI for Kidney Stones, DI for Urinary Tract Infection (UTI) - Post Discharge Activity Addendum entered and electronically signed by Jyaa Martin, RESIDENT 23:27: Progress Note - Progress Note Progress Note: Gave 1 dose empiric ceftriaxone.
[2018-10-31 21:27] LABS: BASO % 1.2 % (0-2.0); EOS % 0.6 % (0-4.5); HEMATOCRIT 45.3 % (35.4-49); HEMOGLOBIN 16.1 GM/dL (11.7-16.9); LYMPH % 41.9 % (8-40); MCH 32.2 pg (25.7-33.7); MCHC 35.4 g/dl (32.0-35.9); MEAN PLT VOLUME 6.8 fl (7.5-11.1); MONO % 8.8 % (3.8-10.2); NEUT % 47.5 % (42.8-82.8); PLATELET COUNT 471 K/MM3 (134-434); RBC 4.98 M/mm3 (4.00-5.60); RDW 12.6 % (11.9-15.9)
[2018-10-31 21:49] LABS: ALBUMIN 4.6 g/dl (3.4-5.0); ALK PHOS 118 U/L (45-117); ANION GAP 5 MMOL/L (8-16); BILIRUBIN,TOTAL 1.1 mg/dL (0.2-1); BLOOD UREA NITROGEN 10 mg/dL (7-18); CALCIUM 9.4 mg/dL (8.5-10.1); CHLORIDE 105 mmol/L (98-107); CO2 28 mmol/L (21-32); GLUCOSE,RANDOM 89 mg/dL (74-106); MAGNESIUM 2.3 mg/dL (1.8-2.4); POTASSIUM 4.1 mmol/L (3.5-5.1); SGOT/AST 19 U/L (15-37); SGPT/ALT 37 U/L (13-61); SODIUM 138 mmol/L (136-145); TOT PROT 8.8 g/dl (6.4-8.2)
[2018-10-31 21:57] LABS: URINE APPEARANCE SLCLOUDY; URINE BILIRUBIN NEGATIVE (<2.0 mg/dL); URINE COLOR DKYELLOW; URINE GLUCOSE (UA) NEGATIVE (NEGATIVE); URINE KETONE NEGATIVE (NEGATIVE); URINE LEUK ESTERASE NEGATIVE (NEGATIVE); URINE NITRITE NEGATIVE (NEGATIVE); URINE PROTEIN 2+ (NEGATIVE); URINE UROBILINOGEN NEGATIVE mg/dL (0.2-1.0)
[2018-10-31 22:04] LABS: URINE MUCUS FEW
[2018-10-31] MEDS ORDERED: KETOROLAC TROMETHAMINE 30 MG/1 ML VIAL IVPUSH ONE (22:15)
[2018-10-31] MEDS ORDERED: KETOROLAC TROMETHAMINE 30 MG/1 ML VIAL ONE (22:26)
[2018-10-31] MEDS ORDERED: CEFTRIAXONE 1 GM/50 ML BAG ONE (22:34)
[2018-10-31] MEDS ORDERED: CEFTRIAXONE 1 GM in DEXTROSE 5%-WATER - 100 ML IVPB ONE (22:34)
== END 2018-10-31 23:52 | disposition home or self-care (01) ==
LOC: JER 19:10
PROC: 3E03329 Introduction of Other Anti-infective into Peripheral Vein, Percutaneous Approach (ICD-10-PCS; principal; 2018-10-31)
PROC: 3E0333Z Introduction of Anti-inflammatory into Peripheral Vein, Percutaneous Approach (ICD-10-PCS; 2018-10-31)
DX: N13.2 Hydronephrosis with renal and ureteral calculous obstruction (principal); N30.01 Acute cystitis with hematuria
CPT/HCPCS: 36415; 74176; 80053; 81003; 81015; 83735; 84100; 85025; 87491; 87591; 99282-25

== ENCOUNTER 2020-11-18 18:30 | Emergency (ER) | payer OTHER ==
[2020-11-18 19:04] VITALS: BP 158/83; PULSE 64; TEMP 98.5
== END 2020-11-18 19:36 | disposition home or self-care (01) ==
LOC: JERFT 18:30 → JER 18:30 → JERFT 19:36
DX: M54.2 Cervicalgia (principal)
CPT/HCPCS: 99283-25

== ENCOUNTER 2021-04-22 12:03 | Emergency (ER) | payer OTHER ==
[2021-04-22 12:19] VITALS: BP 130/77; PULSE 68; TEMP 97.9; BMI 29.6
== END 2021-04-22 13:08 | disposition home or self-care (01) ==
LOC: JERFT 12:03
DX: F41.9 Anxiety disorder, unspecified (principal)
CPT/HCPCS: 93005; 93010; 99283-25

== ENCOUNTER 2021-11-04 18:44 | Emergency (ER) | payer OTHER ==
[2021-11-04 19:23] VITALS: BP 144/94; PULSE 79; TEMP 97.8; BMI 26.5
== END 2021-11-04 20:40 | disposition home or self-care (01) ==
LOC: JER 18:44
DX: L02.411 Cutaneous abscess of right axilla (principal)
CPT/HCPCS: 99283-25

== ENCOUNTER 2022-04-16 22:22 | Emergency (ER) | payer OTHER ==
[2022-04-16 22:38] VITALS: BP 135/89; PULSE 85; TEMP 99.1; BMI 26.5
[2022-04-17] MEDS ORDERED: IBUPROFEN 400 MG TABLET (FP) PO ONE ×2 (00:26→01:15)
== END 2022-04-17 02:09 | disposition home or self-care (01) ==
LOC: JER 22:22
DX: M79.10 Myalgia, unspecified site (principal); R51.9 Headache, unspecified
CPT/HCPCS: 0241U-QW; 71046-TC-FY; 99284-25

== ENCOUNTER 2023-03-11 20:45 | Emergency (ER) | payer OTHER ==
[2023-03-11 20:52] VITALS: BP 137/82; PULSE 86; RESP 18; TEMP 98.1; BMI 27.2
[2023-03-11] MEDS ORDERED: IBUPROFEN 600 MG TABLET (FP) PO ONE ×2 (21:58→22:04)
[2023-03-11] MEDS ORDERED: ACETAMINOPHEN 500 MG TABLET (FP) PO ONE (21:58)
[2023-03-11] MEDS ORDERED: ACETAMINOPHEN 500 MG TABLET (FP) ONE (22:04)
== END 2023-03-11 22:20 | disposition home or self-care (01) ==
LOC: JERFT 20:45
DX: R22.42 Localized swelling, mass and lump, left lower limb (principal); M25.562 Pain in left knee; M25.462 Effusion, left knee
CPT/HCPCS: 73562-TC-LT-FY; 99283-25

== ENCOUNTER 2023-04-24 23:48 | Emergency (ER) | payer OTHER ==
[2023-04-24 23:55] VITALS: BP 133/82; PULSE 85; RESP 20; TEMP 98; BMI 27.2
[2023-04-25] MEDS ORDERED: SULFAMETHOXAZOLE/TRIMETHOPRIM 800MG/160MG D.S. TABLET PO ONE (02:38)
[2023-04-25] MEDS ORDERED: SULFAMETHOXAZOLE/TRIMETHOPRIM 800MG/160MG D.S. TABLET ONE (02:52)
== END 2023-04-25 02:58 | disposition home or self-care (01) ==
LOC: JER 23:48
DX: M79.604 Pain in right leg (principal)
CPT/HCPCS: 99283-25

== ENCOUNTER 2024-06-12 08:08 | Emergency (ER) | payer OTHER ==
[2024-06-12 08:20] VITALS: BMI 28.8
[2024-06-12] MEDS ORDERED: KETOROLAC TROMETHAMINE 15 MG/ML VIAL ONE (09:21)
[2024-06-12 09:30] LABS: EPI CELLS 2 /uL (0-25.1); HYALINE CASTS 1 /uL (0-3.1); PH,URINE 5.5 (5.0-8.0); URINE APPEARANCE CLEAR; URINE BACTERIA 1 /uL (0-1359); URINE BILIRUBIN NEGATIVE (NEGATIVE); URINE COLOR YELLOW; URINE GLUCOSE (UA) NEGATIVE (NEGATIVE); URINE KETONE NEGATIVE (NEGATIVE); URINE LEUK ESTERASE NEGATIVE (NEGATIVE); URINE NITRITE NEGATIVE (NEGATIVE); URINE PROTEIN NEGATIVE (NEGATIVE); URINE RBC 76 /uL (0-23.9); URINE UROBILINOGEN 0.2 mg/dL (0.2-1.0); URINE WBC 16 /uL (0-25.8)
[2024-06-12] MEDS: KETOROLAC TROMETHAMINE 15 MG/ML VIAL IVPUSH ONE (09:32)
[2024-06-12] MEDS: SODIUM CHLORIDE 0.9% 500 ML INFUS.BAG IV ONE (09:32)
[2024-06-12 09:39] LABS: BASO % 0.9 % (0-2.0); EOS % 2.4 % (0-4.5); HEMATOCRIT 45.9 % (35.4-49); HEMOGLOBIN 15.8 GM/dL (11.7-16.9); LYMPH % 45.8 % (8-40); MCH 31.6 pg (25.7-33.7); MCHC 34.5 g/dl (32.0-35.9); MEAN CELL VOLUME 91.7 fl (80-96); MEAN PLT VOLUME 6.7 fl (7.5-11.1); MONO % 11.3 % (3.8-10.2); NEUT % 39.6 % (42.8-82.8); PLATELET COUNT 370 10^3/uL (134-434); RBC 5.01 M/mm3 (4.00-5.60); RDW 12.4 % (11.9-15.9); WHITE BLOOD COUNT 4.3 K/mm3 (4.0-10.0)
[2024-06-12 09:55] LABS: CHLORIDE 106 mmol/L (98-107); POTASSIUM 4.6 mmol/L (3.5-5.1); SODIUM 136 mmol/L (136-145)
[2024-06-12 09:58] LABS: ANION GAP 6 mmol/L (4-13); BLOOD UREA NITROGEN 14.8 mg/dL (7-18); CALCIUM 9.3 mg/dL (8.5-10.1); CO2 25 mmol/L (21-32); GLUCOSE,RANDOM 90 mg/dL (74-106)
[2024-06-12 10:01] LABS: CREATININE 0.9 mg/dL (0.55-1.3); SGOT/AST 38 U/L (15-37); SGPT/ALT 57 U/L (13-61)
[2024-06-12 10:03] LABS: BILIRUBIN,TOTAL 0.9 mg/dL (0.2-1); TOT PROT 8.3 g/dl (6.4-8.2)
[2024-06-12 10:04] LABS: ALK PHOS 88 U/L (45-117)
[2024-06-12 12:02] LABS: HIV INTERPRETATION NEGATIVE (NEGATIVE)
[2024-06-12 12:39] VITALS: BP 126/83; PULSE 64; RESP 18; TEMP 98.2
== END 2024-06-12 14:05 | disposition home or self-care (01) ==
LOC: JER 08:08
PROC: 3E0333Z Introduction of Anti-inflammatory into Peripheral Vein, Percutaneous Approach (ICD-10-PCS; principal; 2024-06-12)
DX: R10.12 Left upper quadrant pain (principal); N13.2 Hydronephrosis with renal and ureteral calculous obstruction; R30.0 Dysuria
CPT/HCPCS: 36415; 74176-TC; 80053; 80307; 81003; 83690; 85025; 86780; 86803; 87086; 87389; 87491; 87591; 99284-25

== ENCOUNTER 2024-06-15 03:39 | Emergency (ER) | payer OTHER ==
[2024-06-15 03:42] VITALS: BP 145/95; PULSE 68; RESP 17; TEMP 98.6; BMI 28.0
[2024-06-15] MEDS ORDERED: KETOROLAC TROMETHAMINE 30 MG/1 ML VIAL ONE (04:06)
[2024-06-15] MEDS: KETOROLAC TROMETHAMINE 30 MG/1 ML VIAL IM ONE (04:12)
== END 2024-06-15 05:01 | disposition home or self-care (01) ==
LOC: JER 03:39
PROC: 3E0133Z Introduction of Anti-inflammatory into Subcutaneous Tissue, Percutaneous Approach (ICD-10-PCS; principal; 2024-06-15)
DX: N13.2 Hydronephrosis with renal and ureteral calculous obstruction (principal); R10.9 Unspecified abdominal pain
CPT/HCPCS: 99283-25